=== PATIENT | male | born 1960 | race Caucasian/White ===

== ENCOUNTER → 2019-02-04 | Outpatient (CLI) | payer OTHER | END | disposition home or self-care (01) | LOC: LAB SHORT 10:39 → PLD 10:39 | DX: D04.39 Carcinoma in situ of skin of other parts of face (principal) | CPT/HCPCS: 88305 ==

== ENCOUNTER 2024-03-11 08:52 | Day surgery (SDC) | payer OTHER ==
[~2024-03-11] VITALS: Ht 170.2 cm; Wt 77.8 kg
[~2024-03-11 08:52] MED LIST: AMLO5 PO; ATEN100 PO; ATOR40TA PO; Lactated Ringer's 1,000 ML IV ONE; MOBIC15 MG PO; SILD50TA PO
[2024-03-11] MEDS ORDERED: CeFAZolin Sodium 2,000 MG VIAL ONE (09:00)
[2024-03-11] MEDS ORDERED: NS 50 ML IV ONE (09:00)
[2024-03-11] MEDS ORDERED: Lactated Ringer's 1,000 ML IV ONE ×2 (09:06)
[2024-03-11] MEDS ORDERED: Midazolam HCl 1MG / ML 2ML Vial ONE (09:46)
[2024-03-11] MEDS ORDERED: FentaNYL Citrate 50 MCG/ML 2 ML Injection ONE (09:46)
[2024-03-11] MEDS ORDERED: propofoL 20 ML IV ONE (09:47)
[2024-03-11] MEDS ORDERED: Rocuronium Bromide 10 MG/ML 5ML Injection IV ONE (09:48)
[2024-03-11] MEDS ORDERED: Sugammadex Sodium 200 MG/2ML SDV (100 MG/ML) ONE (09:54)
--- NOTE | 2024-03-11 10:48 | NUR ---
03/11/24 1048 Drake Vaughn, BLOCK TIMEOUT 1035 BLOCK STARTED 1045 BLOCK FINISHED 1041
[2024-03-11] MEDS ORDERED: ePHEDrine Sulfate 50 MG/ML 1ML Injection ONE (11:22)
--- NOTE | 2024-03-11 11:28 | NUR ---
03/11/24 1128 Estefani Bradshaw 2 X STAFETY STRAPS WITH 1X GEL PAD UNDER EACH STRAP
[2024-03-11] MEDS ORDERED: EPINEPhrine HCl 1 MG/ML 1ML Amp XX ONE (11:33)
[2024-03-11] MEDS ORDERED: Dexamethasone Sod Phos 10 MG/ML 1ML VIAL ONE (12:39)
[2024-03-11] MEDS ORDERED: Ondansetron HCl 2 MG / ML 2ML Vial ONE (12:39)
[2024-03-11 13:10] VITALS: BP 142/87
== END 2024-03-11 14:09 | disposition home or self-care (01) ==
LOC: ORSCSDS 08:52
PROVIDERS: Orthopaedic Surgery
PROC: 0RNJ4ZZ Release Right Shoulder Joint, Percutaneous Endoscopic Approach (ICD-10-PCS; principal; 2024-03-11 10:30)
DX: M75.121 Complete rotator cuff tear or rupture of right shoulder, not specified as traumatic (principal); M75.41 Impingement syndrome of right shoulder; S46.101A Unspecified injury of muscle, fascia and tendon of long head of biceps, right arm, initial encounter; I10 Essential (primary) hypertension; E78.00 Pure hypercholesterolemia, unspecified; Z79.899 Other long term (current) drug therapy
CPT/HCPCS: C1713; J0171; J0690; J1100; J2250; J2405; J2704; J3010; J7120